=== PATIENT | male | born 1985 | race Caucasian/White ===

== ENCOUNTER 2023-08-04 12:30 | Outpatient (CLI) | payer OTHER | END 2023-08-04 12:31 | LOC: PET 12:30 | PROVIDERS: ATTEND Internal Medicine Critical Care Medicine | DX: R91.8 Other nonspecific abnormal finding of lung field (principal); J98.11 Atelectasis; M89.9 Disorder of bone, unspecified | CPT/HCPCS: 78815; A9552 ==